=== PATIENT | male | born 1970 | race Caucasian/White ===

== ENCOUNTER 2016-09-25 16:42 | Emergency (ER) | payer OTHER ==
[~2016-09-25] VITALS: Ht 175.3 cm; Wt 109.1 kg
[~2016-09-25 16:42] MED LIST: CIPRO 500MG TA500 MG PO; FLAGYL500 MG PO
[2016-09-25 16:45] VITALS: TEMP 97.5
[2016-09-25 17:03] LABS: CALCIUM 9.4 mg/dL (8.4-10.2); CREATININE, serum 1.15 mg/dL (0.66-1.25); POTASSIUM 3.2 mmol/L (3.4-5.0)
[2016-09-25 17:05] LABS: BASO # 0.2 (0.0-0.2); BASO % 1.1 % (0.0-2.0); EOS # 0.2 (0.0-0.7); EOS % 1.6 % (0-4.0); GRAN # 6.8 (1.4-6.5); GRAN % 48.7 % (42.2-75.2); HEMATOCRIT 47.9 % (42.0-52.0); HEMOGLOBIN 15.9 g/dl (13.5-18.0); LYMPH # 5.9 (1.2-3.4); LYMPH % 42.2 % (20.0-51.0); MEAN CELL VOLUME 88 fl (80.0-100.0); MEAN CORPUSCULAR HEMOGLOBIN 29 pg (27.0-31.0); MEAN CORPUSCULAR HGB CONC 33 g/dl (33.0-37.0); MEAN PLATELET VOLUME 11.5 fl (7.4-10.4); MONO # 0.8 (0.1-0.6); PLATELET COUNT 243 K/mm3 (130-400); RED BLOOD COUNT 5.47 M/mm3 (4.20-5.60)
[2016-09-25 17:08] LABS: PROTHROMBIN TIME 10.8 SECONDS (9.7-12.8)
[2016-09-25 17:11] LABS: PARTIAL THROMBOPLASTIN TIME 28.8 SECONDS (26.0-37.0)
[2016-09-25] MEDS ORDERED: DIABETA 2.5MG2.5 MG PO (17:16)
[2016-09-25] MEDS ORDERED: GLUCOPHAGE850 MG/TAB PO (17:19)
[2016-09-25] MEDS ORDERED: LOPRESSOR 550 MG/TAB PO (17:19)
[2016-09-25 17:20] VITALS: BP 161/109; PULSE 92
[2016-09-25 17:22] LABS: TROPONIN-I 0.039 ng/mL (0.000-0.034)
== END 2016-09-25 17:27 | disposition short-term general hospital (02) ==
LOC: COL.ER 16:42
PROVIDERS: Emergency Medicine
DX: I21.3 ST elevation (STEMI) myocardial infarction of unspecified site (principal); I10 Essential (primary) hypertension; E11.9 Type 2 diabetes mellitus without complications; Z79.84 Long term (current) use of oral hypoglycemic drugs
CPT/HCPCS: J1170; J1644; J2270; J3101

== ENCOUNTER 2016-10-26 14:44 | Outpatient (RCR) | payer OTHER ==
[~2016-10-26 14:44] MED LIST changes: +DIABETA 2.5MG2.5 MG PO; +GLUCOPHAGE850 MG/TAB PO; +LOPRESSOR 550 MG/TAB PO
== END 2016-10-30 16:24 | disposition home or self-care (01) ==
LOC: COL.CR 14:44
DX: I21.3 ST elevation (STEMI) myocardial infarction of unspecified site (principal); Z98.61 Coronary angioplasty status

== ENCOUNTER → 2020-10-30 | Outpatient (CLI) | payer BC | LOC: COL.RAD 13:49 | DX: R11.10 Vomiting, unspecified (principal); R79.89 Other specified abnormal findings of blood chemistry; R10.11 Right upper quadrant pain ==

== ENCOUNTER → 2020-11-22 | Outpatient (CLI) | payer BC | LOC: COL.RAD 06:31 | DX: R10.11 Right upper quadrant pain (principal) | CPT/HCPCS: A9537 ==

== ENCOUNTER → 2021-06-17 | Outpatient (CLI) | payer OTHER | LOC: COL.RAD 08:54 | DX: M25.561 Pain in right knee (principal) ==